=== PATIENT | male | born 1990 | race African-American/Black ===

== ENCOUNTER 2018-01-24 17:13 | Emergency (ER) | payer OTHER ==
[~2018-01-24] VITALS: Ht 177.8 cm; Wt 96.2 kg
[2018-01-24 17:17] VITALS: BP 135/81
[2018-01-24 18:07] LABS: CULTURE INDICATED? YES; MICROSCOPIC INDICATED
[2018-01-24] MEDS ORDERED: AZITHROMYCIN 500 MG TABLET ONE (18:13)
[2018-01-24] MEDS ORDERED: CEFTRIAXONE 250 MG ONE (18:14)
[2018-01-24] MEDS ORDERED: LIDOCAINE-MPF 1%, 2ML ONE (18:26)
[2018-01-24] MEDS ORDERED: AZITHROMYCIN 500 MG TABLET PO ONE (18:30)
[2018-01-24] MEDS ORDERED: CEFTRIAXONE 1,000 MG IM ONE (18:30)
== END 2018-01-24 18:45 | disposition home or self-care (01) ==
LOC: ED 18:39
DX: N34.1 Nonspecific urethritis (principal)
CPT/HCPCS: 81001; 87086; 87491; 87591; 96372; 99284; J0696